=== PATIENT | male | born 1990 | race Caucasian/White ===

== ENCOUNTER 2020-06-05 14:16 | Inpatient (IN) | payer BC ==
[~2020-06-05] VITALS: Ht 182.9 cm; Wt 68.0 kg
[2020-06-05 14:36] VITALS: Ht 182.9 cm; Wt 68.0 kg
[2020-06-05 14:46] LABS: BASOPHIL % 0.3 % (0-2); PLATELET COUNT 158 x10^3mcL (130-400); RED CELL DISTRIBUTION WIDTH 14.2 % (11.5-14.5)
[2020-06-05 15:06] LABS: CALCIUM 8.9 mg/dL (8.5-10.1); CARBON DIOXIDE 29.8 mmol/L (21-32); CHLORIDE SERUM 107 mmol/L (98-107); GFR1 > 60 mL/min; GLUCOSE SERUM 114 mg/dL (74-106); POTASSIUM SERUM 3.8 mmol/L (3.5-5.1); SODIUM SERUM 140 mmol/L (136-145)
[2020-06-05 15:11] LABS: ALBUMIN 4.1 g/dL (3.4-5.0); ALKALINE PHOSPHATASE 55 U/L (46-116); ALT/SGPT 55 U/L (16-63); AST/SGOT 61 U/L (15-37); BILIRUBIN TOTAL 1.3 mg/dL (0.20-1.00); LACTIC DEHYDROGENASE (LDH) 218 U/L (100-190); LIPASE 194 IU/L (73-393)
[2020-06-05 15:23] LABS: C REACTIVE PROTEIN < 0.2 mg/dL (<=0.9)
[2020-06-05 16:47] LABS: microscopic required? NO
[2020-06-05 17:00] LABS: UA SPECIFIC GRAVITY 1.015 (1.005-1.035); urine erythrocyte NEGATIVE (NEGATIVE)
[2020-06-05 17:34] LABS: AMPHETAMINE QUAL UR NONE DETECTED (See below)
[2020-06-06 05:24] LABS: BASOPHIL % 0.3 % (0-2); PLATELET COUNT 149 x10^3mcL (130-400)
[2020-06-06 05:34] LABS: RED CELL DISTRIBUTION WIDTH 14.6 % (11.5-14.5)
[2020-06-06 05:37] LABS: CALCIUM 8.7 mg/dL (8.5-10.1); CARBON DIOXIDE 24.8 mmol/L (21-32); CHLORIDE SERUM 110 mmol/L (98-107); CREATININE SERUM 0.8 mg/dL (0.7-1.3); GFR1 > 60 mL/min; GLUCOSE SERUM 118 mg/dL (74-106); POTASSIUM SERUM 3.8 mmol/L (3.5-5.1); SODIUM SERUM 143 mmol/L (136-145)
[2020-06-06 14:17] VITALS: BP 117/69
== END 2020-06-06 19:59 | DRG 71 ==
LOC: ED 14:16 → DU 16:29
PROVIDERS: Specialist; ADMIT Internal Medicine; ATTEND Internal Medicine
DX: G93.41 Metabolic encephalopathy (principal); M62.82 Rhabdomyolysis; F29 Unspecified psychosis not due to a substance or known physiological condition
CPT/HCPCS: 83880; 85378; 87804; G0378; J7030; Q0092; U0003-CS